=== PATIENT | male | born 1950 | race Hispanic/Latino ===

== ENCOUNTER → 2020-07-14 | Outpatient (CLI) | payer OTHER ==
[~2020-07-14] MED LIST: ACET1TAB12 PO; ASPI-1026 PO; CEPH500B PO; LOSA50TA64 PO; OMEP40CA13 PO; ROSU10TA22 PO; VITA-328 PO
== END | disposition home or self-care (01) ==
LOC: SHCH 14:28
PROVIDERS: ATTEND Internal Medicine Cardiovascular Disease
DX: I25.10 Atherosclerotic heart disease of native coronary artery without angina pectoris (principal); R06.09 Other forms of dyspnea; R07.9 Chest pain, unspecified
CPT/HCPCS: 93306; 93356

== ENCOUNTER → 2020-07-18 | Outpatient (CLI) | payer OTHER ==
[~2020-07-18] VITALS: Ht 185.4 cm; Wt 114.8 kg
[~2020-07-18] MED LIST changes: +REGADENOSON 0.4 MG/5 ML PF SYG IVP SCH
== END | disposition home or self-care (01) ==
LOC: SHCH 10:00
PROVIDERS: ATTEND Internal Medicine Cardiovascular Disease
DX: I20.9 Angina pectoris, unspecified (principal); R07.9 Chest pain, unspecified
CPT/HCPCS: 78452; 93017; 96374; A9500 ×2; J2785

== ENCOUNTER 2021-04-15 21:56 | Emergency (ER) | payer OTHER ==
[~2021-04-15] VITALS: Ht 185.4 cm; Wt 109.8 kg
[~2021-04-15 21:56] MED LIST changes: -ACET1TAB12 PO; +AEC81 PO; -ASPI-1026 PO; -CEPH500B PO; +FOLI0.4T6 PO; +HYDR-4060 PO; -OMEP40CA13 PO; +OMEP40CA21 PO; -REGADENOSON 0.4 MG/5 ML PF SYG IVP SCH; -VITA-328 PO
[2021-04-15 21:57] VITALS: BP 139/75
[2021-04-15 22:37] LABS: BASOPHILS % (AUTO) 0.1 % (0.0-5.0); HEMATOCRIT 31.2 % (42-54); LYMPHOCYTES % (AUTO) 10.1 % (21.0-51.0); MEAN CORPUSCULAR HEMOGLOBIN 27.9 pg (27.0-33.0); MEAN CORPUSCULAR HGB CONC 32.4 g/dL (32.0-36.0); MEAN CORPUSCULAR VOLUME 86.2 fL (79-99); MONOCYTES % (AUTO) 19.7 % (3.0-13.0); NEUTROPHILS % (AUTO) 67.5 % (40.0-77.0); PLATELET COUNT (AUTO) 141 K/uL (130-400); RED BLOOD CELL COUNT(AUTO) 3.62 MIL/uL (4.50-6.20); RED CELL DISTRIBUTION WIDTH 13.1 % (11.0-15.5); WHITE BLOOD COUNT (AUTO) 7.1 K/uL (4.8-10.8)
[2021-04-15 22:41] LABS: APPEARANCE,URINE Clear (CLEAR); BILIRUBIN,URINE Negative (NEGATIVE); COLOR,URINE Yellow (YELLOW); GLUCOSE, URINE (UA) 250 mg/dL (NEGATIVE); KETONES,URINE Trace mg/dL (NEGATIVE); LEUKOCYTE ESTERASE ,URINE Small (NEGATIVE); NITRATE,URINE Negative (NEGATIVE); OCCULT BLOOD,URINE Moderate (NEGATIVE); PH,URINE 7.5 (5.0-8.0); PROTEIN,URINE POS 1+ mg/dL (NEGATIVE)
[2021-04-15 22:54] LABS: CREATININE 1.1 mg/dL (0.5-1.5); POTASSIUM 3.2 mmol/L (3.5-5.1)
[2021-04-15] MEDS: HYDROCODONE/ACETAMINOPHEN 5/325 MG TAB PO ONE (22:56)
[2021-04-15 22:58] LABS: ALBUMIN 3.2 g/dL (3.5-5.0); BILIRUBIN,TOTAL 0.4 mg/dL (0.2-1.0); TOTAL PROTEIN, SERUM 7.3 g/dL (6.0-8.3)
[2021-04-15 23:05] LABS: BACTERIA,URINE Rare /HPF (None Seen)
[2021-04-15 23:08] LABS: CRP QUANTITATIVE 235.4 mg/L (0.00-9.0)
[2021-04-15] MEDS: POTASSIUM BICARB/CIT AC 25 MEQ TABLET.EFF PO ONE (23:19)
[2021-04-15] MEDS: CEFTRIAXONE 1G VIAL IVP ONE (23:19)
[2021-04-15] MEDS ORDERED: ACET-2247 PO (23:25)
[2021-04-15] MEDS ORDERED: CEPH500B PO (23:25)
== END 2021-04-15 23:47 | disposition home or self-care (01) ==
LOC: EDH 21:56
DX: N39.0 Urinary tract infection, site not specified (principal); M25.562 Pain in left knee; E11.9 Type 2 diabetes mellitus without complications; I10 Essential (primary) hypertension; E78.00 Pure hypercholesterolemia, unspecified; E66.9 Obesity, unspecified; Z79.82 Long term (current) use of aspirin; Z79.899 Other long term (current) drug therapy; Z96.653 Presence of artificial knee joint, bilateral
CPT/HCPCS: 36415; 71045; 73562; 80053; 81001; 83605; 85025; 86140; 87040; 96374; 99284; J0696

== ENCOUNTER → 2021-11-30 | Outpatient (CLI) | payer OTHER ==
[~2021-11-30] MED LIST changes: +ACET-2247 PO; +CEPH500B PO
== END | disposition home or self-care (01) ==
LOC: RAH 12:54
PROVIDERS: ATTEND Internal Medicine
DX: R60.9 Edema, unspecified (principal); R79.89 Other specified abnormal findings of blood chemistry
CPT/HCPCS: 93970